=== PATIENT | female | born 1965 | race Caucasian/White ===

== ENCOUNTER 2022-07-05 14:52 | Emergency (ER) | payer MEDICARE ==
[~2022-07-05] VITALS: Ht 165.1 cm; Wt 127.0 kg
[2022-07-05 15:58] VITALS: BP 119/71
[2022-07-05 16:00] VITALS: BP 125/74
[2022-07-05] MEDS ORDERED: PREDNISONE50 MG PO (16:43)
[2022-07-05] MEDS ORDERED: ZPAK PO (16:43)
[2022-07-05] MEDS ORDERED: PROVENTIL HFA IN (16:43)
== END 2022-07-05 17:01 | disposition home or self-care (01) ==
LOC: ED 14:52
DX: J11.1 Influenza due to unidentified influenza virus with other respiratory manifestations (principal); I10 Essential (primary) hypertension; E78.5 Hyperlipidemia, unspecified; Z20.822 Contact with and (suspected) exposure to COVID-19

== ENCOUNTER 2023-08-01 12:41 | Emergency (ER) | payer MEDICARE, MEDICAID ==
[~2023-08-01] VITALS: Ht 165.1 cm; Wt 114.0 kg
[~2023-08-01 12:41] MED LIST: PREDNISONE50 MG PO; PROVENTIL HFA IN; ZPAK PO
[2023-08-01 12:59] VITALS: BP 105/66
[2023-08-01 13:14] LABS: BASO% 0.2 % (0-3); EOS% 2.9 % (0-8); HEMATOCRIT 37.1 % (37.0-47.0); HEMOGLOBIN 11.6 g/dl (12.0-16.0); LYMPH% 16.7 % (15-41); MEAN CELL VOLUME 91.4 fL CALC (80.0-100.0); MEAN CORPUSCULAR HGB 28.6 pG CALC (26.0-32.0); MEAN CORPUSCULAR HGB CONC 31.3 g/dL CAL (32.0-36.0); MONO% 7.4 % (2-13); NEUT# 6.47 thou/uL (2.00-7.15); NEUT% 71.8 % (42-76); RED BLOOD COUNT 4.06 mill/uL (4.20-5.60); RED CELL DISTRI WIDTH 14.6 % (11.5-15.5)
[2023-08-01 13:25] LABS: ALBUMIN 3.7 g/dL (3.2-5.0); BILIRUBIN, TOTAL 0.4 mg/dL (0.02-1.3); CREATININE 1.2 mg/dL (0.5-1.0); TOTAL PROTEIN 6.1 g/dL (6.3-8.2)
[2023-08-01 13:37] VITALS: BP 105/77
[2023-08-01 13:41] LABS: URINE BILIRUBIN - DIPSTICK Negative (NEGATIVE); URINE BLOOD DIPSTICK Negative (NEGATIVE); URINE COLOR Yellow; URINE GLUCOSE - DIPSTICK Negative (NEGATIVE); URINE KETONE Negative (NEGATIVE); URINE LEUK ESTERASE Negative (NEGATIVE); URINE NITRITE - DIPSTICK Negative (Negative); URINE PH 5.5 (4.5-8.0); URINE PROTEIN - DIPSTICK Negative (NEG-TRACE); URINE UROBILINOGEN - DIPSTICK 0.2 E.U./dL (0.2)
[2023-08-01 13:42] LABS: POTASSIUM 5.3 mmol/l (3.5-5.1)
[2023-08-01 14:01] VITALS: BP 117/54
[2023-08-01 14:43] LABS: HEMATOCRIT 33.4 % (37.0-47.0); HEMOGLOBIN 10.2 g/dl (12.0-16.0)
[2023-08-01] MEDS ORDERED: OMEPRAZOLE DR40 MG (14:46)
[2023-08-01] MEDS ORDERED: PREGABALIN150 MG (14:47)
[2023-08-01] MEDS ORDERED: PROPRANOLOL HYD40 MG (14:47)
[2023-08-01] MEDS ORDERED: VITAMIN D350000 UNIT (14:47)
[2023-08-01] MEDS ORDERED: MOTRIN800 MG PO (14:49)
[2023-08-01] MEDS ORDERED: ALPRAZOLAM0.5 M2 PO (14:49)
[2023-08-01] MEDS ORDERED: LORATADINE10 M4 (14:50)
[2023-08-01] MEDS ORDERED: ZOLPIDEM5 M1 PO (14:50)
[2023-08-01] MEDS ORDERED: CYCLOBENZAPRINE10 MG PO (14:50)
[2023-08-01] MEDS ORDERED: RINVOQ30 MG (14:50)
[2023-08-01] MEDS ORDERED: DOXEPIN HCL50 MG PO (14:51)
[2023-08-01] MEDS ORDERED: ZOFRAN4 MG/TAB PO (14:51)
[2023-08-01] MEDS ORDERED: IMITREX100 MG PO (14:51)
[2023-08-01] MEDS ORDERED: DULOXETINE HCL30 MG (14:52)
[2023-08-01 17:44] VITALS: BP 125/61
[2023-08-01 17:58] VITALS: BP 125/61
== END 2023-08-01 17:59 | disposition short-term general hospital (02) ==
LOC: ED 12:41
PROVIDERS: Nurse Practitioner
DX: K92.2 Gastrointestinal hemorrhage, unspecified (principal); I10 Essential (primary) hypertension; E78.5 Hyperlipidemia, unspecified
CPT/HCPCS: Q9967; S0164

== ENCOUNTER 2024-05-17 13:21 | Emergency (ER) | payer MEDICARE, MEDICAID ==
[~2024-05-17] VITALS: Ht 165.1 cm; Wt 125.0 kg
[~2024-05-17 13:21] MED LIST changes: +ALPRAZOLAM0.5 M2 PO; +CYCLOBENZAPRINE10 MG PO; +DOXEPIN HCL50 MG PO; +DULOXETINE HCL30 MG; +IMITREX100 MG PO; +LORATADINE10 M4; +MOTRIN800 MG PO; +OMEPRAZOLE DR40 MG; +PREGABALIN150 MG; +PROPRANOLOL HYD40 MG; +RINVOQ30 MG; +VITAMIN D350000 UNIT; +ZOFRAN4 MG/TAB PO; +ZOLPIDEM5 M1 PO
[2024-05-17] MEDS ORDERED: HYDROcodone 5 MG/Acetaminophen 325 MG/COMBO PO ONE (14:50)
[2024-05-17] MEDS ORDERED: HYDROCO/APAP1 TA9 PO (16:16)
[2024-05-17 16:48] VITALS: BP 110/78
== END 2024-05-17 16:50 | disposition home or self-care (01) ==
LOC: ED 13:21
DX: S80.01XA Contusion of right knee, initial encounter (principal); M25.522 Pain in left elbow; R07.81 Pleurodynia; I10 Essential (primary) hypertension; E78.5 Hyperlipidemia, unspecified; W01.0XXA Fall on same level from slipping, tripping and stumbling without subsequent striking against object, initial encounter